=== PATIENT | female | born 1985 | race Caucasian/White ===

== ENCOUNTER 2017-06-15 12:05 | Emergency (ER) | payer OTHER ==
[~2017-06-15] VITALS: Ht 160 cm; Wt 54.0 kg
[2017-06-15] MEDS ORDERED: ketorolac trometh. 30mg/ml inj. IV ONE (15:00)
[2017-06-15] MEDS ORDERED: dexamethasone sod phosphate 10mg/ml inj IV STA (15:00)
[2017-06-15] MEDS ORDERED: metoclopramide 5 mg/ml inj IV ONE (15:00)
[2017-06-15] MEDS: normal saline 1000ml 1,000 ML IV SCH ×2 (15:30→19:17)
[2017-06-15] MEDS ORDERED: LIDOcaine 1% 30ml preserv. free vial SQ STA (16:34)
[2017-06-15 19:20] LABS: APPEARANCE,CSF CLEAR; CSF SUPERNATANT COLOR COLORLESS; CSF VOLUME 5 ML; TUBE# COUNTED 4
[2017-06-15 19:21] LABS: CSF RBC 107 /CU MM (0); CSF WBC CT 1 /CU MM (0-5)
[2017-06-15 19:36] LABS: GLUCOSE,CSF 55 MG/DL (40-75); TOTAL PROTEIN,CSF 30 MG/DL (15-45)
[2017-06-15 19:37] LABS: APPEARANCE,CSF CLOUDY; CSF SUPERNATANT COLOR PINK; CSF VOLUME 5 ML; TUBE# COUNTED 1
[2017-06-15 19:38] LABS: CSF WBC CT 12 /CU MM (0-5)
[2017-06-15 19:39] LABS: CSF RBC 7850 /CU MM (0)
[2017-06-15 19:41] LABS: LYMPHOCYTES,CSF 13 % (40-80); MONOCYTES,CSF 4 % (15-45); NEUTRO,CSF 83 % (0-6)
[2017-06-15] MEDS ORDERED: IBUP-1985 PO (20:43)
[2017-06-15] MEDS ORDERED: ONDA4TAB9 PO (20:43)
[2017-06-15 20:47] VITALS: BP 105/67
== END 2017-06-15 20:48 | disposition home or self-care (01) ==
LOC: ER 12:05
DX: G43.909 Migraine, unspecified, not intractable, without status migrainosus (principal); G89.29 Other chronic pain; F41.9 Anxiety disorder, unspecified; F32.9 Major depressive disorder, single episode, unspecified; Z88.0 Allergy status to penicillin
CPT/HCPCS: 62270; 82945; 84157; 87015; 87070; 89051; 96361; 96374; 96375; 99285; J1100; J1885; J2765; J3490; J7030